=== PATIENT | female | born 1955 | race Caucasian/White ===

== ENCOUNTER 2016-09-09 20:38 | Emergency (ER) | payer OTHER ==
[~2016-09-09] VITALS: Ht 165.1 cm; Wt 77.1 kg
[2016-09-09] MEDS ORDERED: fentaNYL INJECTION 100 MCG/2 ML AMP ONE (20:53)
[2016-09-09] MEDS ORDERED: ONDANSETRON 4 MG/2 ML (SDV) Z0FRAN ONE (20:53)
[2016-09-09 20:59] LABS: BASOPHILS # (AUTO) 0.1 10^3/uL (0.0-0.1); BASOPHILS % (AUTO) 1 % (0-10); EOSINOPHILS # (AUTO) 0.2 10^3/uL (0.0-0.3); EOSINOPHILS % (AUTO) 2 % (0-10); LYMPHOCYTES # (AUTO) 2.3 X 10^3 (1.0-4.0); LYMPHOCYTES % (AUTO) 27 % (12-44); MEAN CORPUSCULAR HEMOGLOBIN 30 PG (25-34); MEAN CORPUSCULAR HGB CONC 35 G/DL (32-36); MEAN CORPUSCULAR VOLUME 87 FL (80-99); MEAN PLATELET VOLUME 9.7 FL (7.4-10.4); MONOCYTES # (AUTO) 0.6 X 10^3 (0.0-1.0); MONOCYTES % (AUTO) 7 % (0-12); NEUTROPHILS # (AUTO) 5.6 X 10^3 (1.8-7.8); NEUTROPHILS % (AUTO) 64 % (42-75); PLATELET COUNT 243 10^3/uL (130-400); RED BLOOD COUNT 4.65 10^6/uL (4.35-5.85); RED CELL DISTRIBUTION WIDTH 12.5 % (10.0-14.5); WHITE BLOOD COUNT 8.7 10^3/uL (4.3-11.0)
[2016-09-09] MEDS ORDERED: ONDANSETRON 4 MG/2 ML (SDV) Z0FRAN IVP ONE (21:00)
[2016-09-09] MEDS ORDERED: fentaNYL INJECTION 100 MCG/2 ML AMP IVP ONE (21:00)
--- NOTE | 2016-09-09 21:00 | ED Trauma-Burn/Chemical Inh ---
HPI-Trauma Burn/Chemical Inh General Chief Complaint: Abdominal/GI Problems Stated Complaint: RT SIDE ABD PAIN,VOMITING Source: patient Exam Limitations: no limitations History of Present Illness Time seen by provider: 20:58 Initial Comments To ER with sudden onset right sided mid abdominal pain. This is associated with vomiting. This began at 730 tonight which was 1 hour after after she ate a grilled cheese sandwich at 630 p.m. Pain started first then vomiting. She's never had this pain before. She still has all of her organs. She states that for the past few weeks she's had some pain to the right side of her back in the thoracic region without modifying factors that she can recall but this is been mild and very tolerable. No fevers or chills. Primary care is Dr. Marcos in [place]. Her only medication is Advair for a history of asthma. Occurred: this evening Associated Symptoms (Fall): Nausea/Vomiting Allergies and Home Medications Allergies Coded Allergies: No Known Drug Allergies (Unverified , 09/09/16) Home Medications Fluticasone/Salmeterol 1 Each Blst.w.dev 1 EACH IH (Reported) Hydrocodone/Acetaminophen 1 Each Tablet #30 1-2 EACH PO Q6H PRN PRN PAIN Prescribed by: SOBIA BOYD on 09/09/162215 Ketorolac Tromethamine 10 Mg Tablet #10 10 MG PO Q6H PRN PRN PAIN Prescribed by: SOBIA BOYD on 09/09/162215 Sulfamethoxazole/Trimethoprim 1 Each Tablet #14 1 EACH PO BID Prescribed by: SOBIA BOYD on 09/09/162215 Tamsulosin HCl 0.4 Mg Cap #14 0.4 MG PO DAILY Prescribed by: SOBIA BOYD on 09/09/162215 Constitutional: see HPINo chills, No fever Eyes: No Symptoms Reported Ears: No Symptoms Reported Nose: No Symptoms Reported Mouth: No Symptoms Reported Throat: No Symptoms to Report Respiratory: no symptoms reported Cardiovascular: No Symptoms Reported Gastrointestinal: abdominal pain nausea vomiting Genitourinary: no symptoms reported Past Gavqviw-Chkevx-Ajpuwl Hx Patient Social History Recent Foreign Travel: No Contact w/Someone Who Travel: No Physical Exam-Burn/Chemical In Physical Exam Vital Signs Vital Sign - Last 12Hours 09/09/16 20:50 Temp 97.4 Pulse 82 Resp 20 B/P 144/75 Pulse Ox 98 O2 Delivery Room Air Capillary Refill : General Appearance: WD/WN no apparent distress Head: No Evidence of InjuryNo Active Bleeding Eyes: Bilateral Eye EOMI, Bilateral Eye Normal Inspection, Bilateral Eye PERRL Ears, Nose, Throat: Hearing Grossly Normal No Evidence of ENT Injury Neck: non-tender full range of motion Cardiovascular: regular rate, rhythm no murmur Respiratory: chest non-tender lungs clear normal breath sounds no respiratory distress no accessory muscle use Gastrointestinal: normal bowel sounds soft rebound tenderness (significant tenderness to palpation of the entire right side of the abdomen both upper and lower quadrants) Extremities: normal range of motion non-tender Neurologic/Psychiatric: alert normal mood/affect oriented x 3 Skin: normal color warm/dry [place] Coma Score Best Eye Response ([place]): (4) Open Spontaneously Best Verbal Response ([place]): (5) Oriented Best Motor Response ([place]): (6) Obeys Commands [place] Total: 15 Progress/Results/Core Measures Results/Orders Lab Results Laboratory Tests Test 09/09/16 20:50 09/09/16 21:05 Range/Units Alanine Aminotransferase (ALT/SGPT) 16 0-55 U/L Albumin 4.3 3.2-4.5 G/DL Alkaline Phosphatase 68 40-136 U/L Anion Gap 12 5-14 MMOL/L Aspartate Amino Transf (AST/SGOT) 18 5-34 U/L BUN/Creatinine Ratio 18 Basophils # (Auto) 0.1 0.0-0.1 10^3/uL Basophils (%) (Auto) 1 0-10 % Blood Urea Nitrogen 18 7-18 MG/DL Calcium Level 9.3 8.5-10.1 MG/DL Carbon Dioxide Level 24 21-32 MMOL/L Chloride Level 107 98-107 MMOL/L Creatinine 0.99 0.60-1.30 MG/DL Eosinophils # (Auto) 0.2 0.0-0.3 10^3/uL Eosinophils (%) (Auto) 2 0-10 % Estimat Glomerular Filtration Rate 57 Glucose Level 114 H 70-105 MG/DL Hematocrit 41 35-52 % Hemoglobin 14.0 11.5-16.0 G/DL Lipase 40 8-78 U/L Lymphocytes # (Auto) 2.3 1.0-4.0 X 10^3 Lymphocytes (%) (Auto) 27 12-44 % Mean Corpuscular Hemoglobin 30 25-34 PG Mean Corpuscular Hemoglobin Concent 35 32-36 G/DL Mean Corpuscular Volume 87 80-99 FL Mean Platelet Volume 9.7 7.4-10.4 FL Monocytes # (Auto) 0.6 0.0-1.0 X 10^3 Monocytes (%) (Auto) 7 0-12 % Neutrophils # (Auto) 5.6 1.8-7.8 X 10^3 Neutrophils (%) (Auto) 64 42-75 % Platelet Count 243 130-400 10^3/uL Potassium Level 3.9 3.6-5.0 MMOL/L Red Blood Count 4.65 4.35-5.85 10^6/uL Red Cell Distribution Width 12.5 10.0-14.5 % Sodium Level 143 135-145 MMOL/L Total Bilirubin 0.6 0.1-1.0 MG/DL Total Protein 6.8 6.4-8.2 G/DL White Blood Count 8.7 4.3-11.0 10^3/uL Urine Bacteria FEW H /HPF Urine Bilirubin NEGATIVE NEGATIVE Urine Casts NONE /LPF Urine Clarity CLEAR Urine Color YELLOW Urine Crystals NONE /LPF Urine Culture Indicated YES Urine Glucose (UA) NEGATIVE NEGATIVE Urine Ketones NEGATIVE NEGATIVE Urine Leukocyte Esterase 3+ H NEGATIVE Urine Mucus LARGE H /LPF Urine Nitrite NEGATIVE NEGATIVE Urine Protein 2+ H NEGATIVE Urine RBC TNTC H /HPF Urine RBC (Auto) 5+ H NEGATIVE Urine Specific [place] 1.025 H 1.016-1.022 Urine Squamous Epithelial Cells 5-10 /HPF Urine Urobilinogen NORMAL NORMAL MG/DL Urine WBC 5-10 H /HPF Urine pH 6 5-9 My Orders Orders-SOBIA BOYD OFFICE MAIL CLERK Cbc With Automated Diff (09/09/16 20:53) Comprehensive Metabolic Panel (09/09/16 20:53) Lipase (09/09/16 20:53) Ua Culture If Indicated (09/09/16 20:53) Saline Lock/Iv-Start (09/09/16 20:53) Ct Abd/Pelv W (Appendicitis) (09/09/16 20:53) Fentanyl Injection (Sublimaze Injection (09/09/16 21:00) Ondansetron Injection (Zofran Injectio (09/09/16 21:00) Diphenhydramine Injection (Benadryl Inje (09/09/16 21:36) Methylprednisolone Sod Succ (Solu-Medrol (09/09/16 21:36) Famotidine Injection (Pepcid Injection) (09/09/16 21:36) Urine Culture (09/09/16 21:05) Ketorolac Injection (Toradol Injection) (09/09/16 22:00) Alfuzosin Tablet (Uroxatral Tablet) (09/09/16 22:00) Ceftriaxone Injection (Rocephin Injectio (09/09/16 22:00) Abdomen/Kub 1view (09/09/16 22:18) Medications Given in ED Current Medications Medications Dose Ordered Sig/[place] Route Start Time Stop Time Status Last Admin Dose Admin Ceftriaxone Sodium/Sodium Chloride 50 ml @ 100 mls/hr ONCE ONCE IV 09/09/16 22:00 09/09/16 22:29 DC 09/09/16 22:17 100 MLS/HR Fentanyl Citrate 50 mcg PRN ONCE IVP 09/09/16 21:00 09/09/16 21:01 DC 09/09/16 21:05 50 MCG Iohexol 100 ml ONCE ONCE IV 09/09/16 21:30 09/09/16 22:46 DC 09/09/16 21:26 100 ML Ketorolac Tromethamine 30 mg 30 mg ONCE ONCE IVP 09/09/16 22:00 09/09/16 22:01 DC 09/09/16 22:17 30 MG Ondansetron HCl 4 mg ONCE ONCE IVP 09/09/16 21:00 09/09/16 21:01 DC 09/09/16 21:05 4 MG Sodium Chloride 100 ml ONCE ONCE IV 09/09/16 21:30 09/09/16 22:46 DC 09/09/16 21:26 80 ML Vital Signs/I&O Vital Sign - Last 12Hours 09/09/16 09/09/16 20:50 22:46 Temp 97.4 Pulse 82 96 Resp 20 14 B/P 144/75 Pulse Ox 98 96 O2 Delivery Room Air Departure Communication Progress Notes [id number]-patient did have an allergic reaction after her administration of IV contrast. This manifested as hives, erythema and intense diffuse itching. She was given Benadryl 50 mg IV, Solu-Medrol 125 mg IV, Pepcid 1 mg IV. At this time she is pain-free after 1 dose of fentanyl. Toradol will be given for additional pain control as we plan to discharge her. Impression Impression: Primary Impression: Calculus of proximal right ureter Disposition: 01 HOME, SELF-CARE Condition: Improved Decision to Admit Reason: Admit from ER (General) Decision to Admit/Date: Sep 09, 2016 Time/Decision to Admit Time: 23:09 Departure-Patient Inst. Decision time for Depature: 22:14 Referrals: NO,LOCAL PHYSICIAN (PCP) Primary Care Physician RUBEN MORRIS MD Patient Instructions: Kidney Stones in Adults Add. Discharge Instructions: 1. Drink plenty of fluids 2. Medication as directed 3. Return to the emergency room for any intolerable pain or other concerns 4.call Dr. Morris's office tomorrow morning to make an appointment to be seen as soon as he can schedule you. All discharge instructions reviewed with patient and/or family. Voiced understanding. Scripts Sulfamethoxazole/Trimethoprim (Bactrim Ds Tablet)1 Each Tablet1 Each PO BID #14 TAB Prov:SOBIA BOYD APRN 09/09/16 Ketorolac Tromethamine 10 Mg [id number] Mg PO Q6H PRN PAIN #10 TAB Prov:SOBIA BOYD APRN 09/09/16 Hydrocodone/Acetaminophen ([place] 5-325 Tablet)1 Each Tablet1-2 Each PO Q6H PRN PAIN #30 TAB Prov:SOBIA BOYD APRN 09/09/16 Tamsulosin HCl (Flomax)0.4 Mg Cap0.4 Mg PO DAILY #14 CAP Prov:SOBIA BOYD APRN 09/09/16 Work/School Note: Work Release Form Date Seen in the Emergency Department: Sep 09, 2016 Return to Work: Sep 11, 2016 Restrictions: No Restrictions Copy Copies To 1: RUBEN MORRIS MD, PETER J APRN Sep 09, 2016 21:00
[2016-09-09] MEDS ORDERED: FLUT1DIS28 IH (21:13)
[2016-09-09 21:18] LABS: BILIRUBIN,URINE NEGATIVE (NEGATIVE); KETONES,URINE NEGATIVE (NEGATIVE); LEUKOCYTE ESTERASE ,URINE 3+ (NEGATIVE); NITRITE,URINE NEGATIVE (NEGATIVE); PH,URINE 6 (5-9); PROTEIN,URINE 2+ (NEGATIVE); UROBILINOGEN,URINE NORMAL (NORMAL)
[2016-09-09 21:22] LABS: ALBUMIN 4.3 G/DL (3.2-4.5); BILIRUBIN,TOTAL 0.6 MG/DL (0.1-1.0); CALCIUM 9.3 MG/DL (8.5-10.1); CREATININE SERUM 0.99 MG/DL (0.60-1.30); POTASSIUM 3.9 MMOL/L (3.6-5.0); TOTAL PROTEIN 6.8 G/DL (6.4-8.2)
[2016-09-09] MEDS ORDERED: NS 100 ML (IVPB) BAG IV ONE (21:30)
[2016-09-09] MEDS ORDERED: IOHEXOL 350 MG/ML 100 ML (OMNIPAQUE 350) VIAL IV ONE (21:30)
[2016-09-09] MEDS ORDERED: diphenhydrAMINE 50 MG/ML INJ (BENADRYL) ONE (21:36)
[2016-09-09] MEDS ORDERED: methylPREDNISolone 125 MG (Solu-MEDROL) VIAL ONE (21:36)
[2016-09-09] MEDS ORDERED: FAMOTIDINE 20MG/2ML IV (PEPCID) ONE (21:36)
[2016-09-09] MEDS ORDERED: FAMOTIDINE 20MG/2ML IV (PEPCID) IV STA (21:37)
[2016-09-09] MEDS ORDERED: diphenhydrAMINE 50 MG/ML INJ (BENADRYL) IV STA (21:37)
[2016-09-09] MEDS ORDERED: methylPREDNISolone 125 MG (Solu-MEDROL) VIAL IV STA (21:37)
[2016-09-09] MEDS ORDERED: cefTRIAXone INJECTION 1,000 MG in NS (IVPB) 50 ML IV ONE (22:00)
[2016-09-09] MEDS ORDERED: KETOROLAC 30 MG/ML VIAL IVP ONE (22:00)
[2016-09-09] MEDS ORDERED: ALFUZOSIN HCL 10 MG TAB (UROXATRAL) PO SCH (22:00)
--- NOTE | 2016-09-09 22:02 | Diagnostic Imaging Report ---
PROCEDURE: CT abdomen and pelvis with contrast, rule out appendicitis. TECHNIQUE: Multiple contiguous axial images were obtained through the abdomen and pelvis after the administration of intravenous contrast. Indication: Right-sided abdominal pain. Comparison: None. Discussion: The visualized lung bases are unremarkable. Normal heart size. No pleural or pericardial fluid. The liver, gallbladder, pancreas, spleen, stomach, and adrenal glands are unremarkable. There is moderate right hydronephrosis secondary to a 5 mm stone within the proximal right ureter. No hydronephrosis or stone identified on the left. The appendix is normal. Mild diverticulosis with no secondary evidence for diverticulitis. No abnormal small bowel loops identified. The uterus and urinary bladder are unremarkable. There is no ascites or pathologically enlarged lymph nodes identified. No acute osseous abnormality identified. Impression: 1. Moderate right hydronephrosis secondary to a 5 mm stone within the proximal right ureter. Dictated by: Dictated on workstation # [id number]
[2016-09-09] MEDS ORDERED: KETO10TA PO (22:16)
[2016-09-09] MEDS ORDERED: HYDR-757 PO (22:16)
[2016-09-09] MEDS ORDERED: SULF1TAB35 PO (22:16)
[2016-09-09] MEDS ORDERED: TAMS0.4C98 PO (22:16)
[2016-09-09 22:46] VITALS: BP 125/56
--- NOTE | 2016-09-10 08:09 | Diagnostic Imaging Report ---
INDICATION: Right-sided flank pain. KUB obtained at 10:40 p.m. FINDINGS: The abdominal bowel gas pattern is unremarkable. There is residual contrast in the kidneys on both sides as well as in the bladder and ureter. There is hydronephrosis of the right kidney down to the level of a stone at the approximate level of L3-L4. The stone is partially obscured by contrast but was well seen on the CT study done earlier today. Some contrast does pass beyond the stone to the distal ureter on the right side. The left ureter is unremarkable in caliber and appearance. IMPRESSION: Partially obstructing stone in the right upper ureter with hydronephrosis. Some contrast does pass beyond the stone as the distal ureter is visualized. The bowel gas pattern is unremarkable. Dictated by: Dictated on workstation # [id number]
== END 2016-09-09 22:46 | disposition home or self-care (01) ==
LOC: ER 20:41
DX: N13.2 Hydronephrosis with renal and ureteral calculous obstruction (principal); R11.2 Nausea with vomiting, unspecified
CPT/HCPCS: 36415; 74000; 74177; 80053; 81000; 83690; 85025; 87088; 96365; 96375

== ENCOUNTER → 2016-09-23 | Outpatient (CLI) | payer OTHER ==
[~2016-09-23] MED LIST: FLUT1DIS28 IH; HYDR-3812 PO; HYDR-757 PO; KETO10TA PO; NITR-65 PO; PHEN-639 PO; SULF1TAB35 PO; TAMS0.4C98 PO
--- NOTE | 2016-09-23 20:43 | Diagnostic Imaging Report ---
KUB. INDICATION: Follow-up right ureteric stone. FINDINGS: There are multiple pelvic calcifications likely related to phleboliths. The previously seen level of obstruction based on contrast within the right ureter from a preceding CT scan is not definitely visualized on the current exam. This could be related to interval passage of the right ureteric stone. Correlate clinically. Moderate amount of fecal material is seen in the colon. IMPRESSION: Multiple calcifications in the pelvis are likely phleboliths. No definitive urinary tract stone is identified. Dictated by: Dictated on workstation # [id number]
== END ==
LOC: RAD 14:48
PROVIDERS: ATTEND Urology
DX: N20.1 Calculus of ureter (principal)
CPT/HCPCS: 74000

== ENCOUNTER 2016-09-24 09:52 | Day surgery (SDC) | payer OTHER ==
[~2016-09-24] VITALS: Ht 165.1 cm; Wt 76.2 kg
[~2016-09-24 09:52] MED LIST changes: -HYDR-3812 PO; -NITR-65 PO; -PHEN-639 PO
[2016-09-24] MEDS ORDERED: NS (IVPB) 50 ML ONE (10:04)
[2016-09-24] MEDS ORDERED: cefTRIAXone 1 GM (ROCEPHIN) VIAL ONE (10:04)
--- NOTE | 2016-09-24 10:21 | Diagnostic Imaging Report ---
INDICATION: Right-sided flank pain. TECHNIQUE: A KUB was obtained at 1020 hours. FINDINGS: The abdominal bowel gas pattern is unremarkable. There is no sign of obstruction or ileus. There are multiple calcifications over the pelvis which may be phleboliths or stones. IMPRESSION: Unremarkable bowel gas pattern. There are multiple pelvic calcifications which may be phleboliths or small stones. No significant change from yesterday. Dictated by: Dictated on workstation # [id number]
[2016-09-24] MEDS ORDERED: FAMOTIDINE 20MG/2ML IV (PEPCID) IV ONE (10:45)
[2016-09-24] MEDS ORDERED: cefTRIAXone 1 GM/NS 50 ML IVPB IV ONE ×2 (10:45)
[2016-09-24] MEDS: LACTATED RINGERS 1,000 ML IV PRN ×2 (10:47→14:50)
--- NOTE | 2016-09-24 11:01 | Progress Note-Pre Operative ---
Pre-Operative Progress Note H&P Reviewed The H&P was reviewed, patient examined and no changes noted. Date H&P Reviewed: Sep 24, 2016 Time H&P Reviewed: 11:01 Pre-Operative Diagnosis: RT DISTAL URETERAL STONE RUBEN MORRIS MD Sep 24, 2016 11:01 am
[2016-09-24 11:23] VITALS: BP 121/61
--- NOTE | 2016-09-24 12:05 | Progress Note-Post Operative ---
Post-Operative Progess Note Surgeon (s)/Solar Development Engineer (s) Surgeon RUBEN MORRIS MD Solar Development Engineer: N/A Pre-Operative Diagnosis RT DISTAL URETERAL STONE Post-Operative Diagnosis SAME Post-Op Procedure Note Date of Procedure: Sep 24, 2016 Name of Procedure Performed: CYSTO, RT URETEROSCOPY WITH ATTEMPTED LITHOTRIPSY, AND RT ESWL Description of the Procedure: ABOVE Findings of the Procedure RT DISTAL URETERAL STONE Anesthesia Type GENERAL Estimated blood loss (mL): N/A Specimen(s) collected/removed N/A RUBEN MORRIS MD Sep 24, 2016 12:05 pm
--- NOTE | 2016-09-24 12:07 | Discharge Inst-Urology ---
Discharge Inst-Urology Discharge Medications New, Converted, or Re-newed RX: RX on Chart Patient Instructions/Follow Up Plan Please make appointment to been seen in office in 2 weeks. KUB PRIOR TO IT KUB ON WAY HOME POST ESWL INSTRUCTIONS Increase oral fluids for 48 hours and then as needed. Diet and Activity as tolerated. If questions or concerns contact your physician Or seek help at emergency department. RUBEN MORRIS MD Sep 24, 2016 12:06 pm
[2016-09-24] MEDS ORDERED: proPOfol 200 MG/20 ML (DIPRIVAN) VIAL IV ONE (12:47)
[2016-09-24] MEDS ORDERED: fentaNYL INJECTION 100 MCG/2 ML AMP ONE (12:47)
[2016-09-24] MEDS ORDERED: MIDAZOLAM 2 MG/2 ML (VERSED) VIAL ONE (12:47)
[2016-09-24] MEDS ORDERED: ROCURONIUM 50 MG/5 ML (ZEMURON) VIAL IV ONE (12:47)
[2016-09-24] MEDS ORDERED: SEVOFLURANE (ULTANE) 15 ML INHAL SOLN ONE ×3 (13:41→14:30)
[2016-09-24] MEDS ORDERED: LACTATED RINGERS 1,000 ML IV ONE ×2 (13:41→14:43)
[2016-09-24] MEDS ORDERED: ONDANSETRON 4 MG/2 ML (SDV) Z0FRAN ONE (13:41)
[2016-09-24 13:45] VITALS: BP 121/61
[2016-09-24] MEDS ORDERED: KETOROLAC 30 MG/ML VIAL ONE (13:51)
[2016-09-24] MEDS ORDERED: FUROSEMIDE 40 MG/4 ML INJ (LASIX) ONE (13:51)
[2016-09-24] MEDS ORDERED: NEOSTIGMINE (BLOXIVERZ ) 1 MG/1ML 10 ML VIAL ONE (14:07)
[2016-09-24] MEDS ORDERED: GLYCOPYRROLATE 0.2 MG/ML (ROBINUL) 2 ML VIAL ONE (14:07)
[2016-09-24] MEDS ORDERED: morphine INJ 10 MG/ML 1ML (SYR OR VIAL) ONE (14:42)
[2016-09-24 15:20] VITALS: BP 128/62
[2016-09-24] MEDS ORDERED: HYDR-3812 PO (15:44)
[2016-09-24] MEDS ORDERED: PHEN-639 PO (15:44)
[2016-09-24] MEDS ORDERED: NITR-65 PO (15:44)
[2016-09-24] MEDS ORDERED: TAMS0.4C98 PO (15:44)
[2016-09-24 15:50] VITALS: BP 127/66
[2016-09-24] MEDS ORDERED: ONDANSETRON 4 MG/2 ML (SDV) Z0FRAN IVP ONE (16:00)
--- NOTE | 2016-09-24 16:14 | Diagnostic Imaging Report ---
KUB. INDICATION: Post lithotripsy. COMPARISON: 09/24/2016. FINDINGS: Again seen multiple calcifications in the pelvis which could be phleboliths. Beqzr-dt-qxnkrayw amounts of fecal material seen. IMPRESSION: Multiple pelvic calcifications likely phleboliths with no definitive stone. Dictated by: Dictated on workstation # [id number]
[2016-09-24 16:20] VITALS: BP 114/69
--- NOTE | 2016-09-25 13:27 | OPERATIVE REPORT ---
PROCEDURE PHYSICIAN: RUBEN MORRIS DATE OF PROCEDURE: 09/24/2016 PREOPERATIVE DIAGNOSIS: Right distal ureteral stone. POSTOPERATIVE DIAGNOSIS: Right distal ureteral stone. OPERATION PERFORMED: 1. Cystoscopy. 2. Right ureteroscopy with attempted lithotripsy. 3. Right ESWL. SURGEON: Lori. ANESTHESIA: General. COMPLICATIONS: None. PROCEDURE: Under satisfactory general anesthesia, the patient in lithotomy position on the cystoscopy table, the genitalia were prepped and draped in usual sterile fashion. 23-Mac[place] cystoscope introduced in the bladder. I went ahead and dilated the right ureteral orifice, intramural portion to accommodate a 6.9-[place] semirigid ureteroscope. I could not get to the level of the stone because of a curve in the ureter and I could not manipulate the semirigid ureteroscope so I terminated the procedure, removed the ureteroscope, inserted the cystoscope to empty the bladder and then moved the patient to the ESWL table supine. The stone was localized and shocks were delivered KV of 6. A total of 2000 shocks. The stone looked fragmented. The patient received 30 mg of Toradol and 40 mg of Lasix IV. She tolerated the procedure and anesthesia well and was sent to recovery room in stable condition. Job ID: [id number] Dictated Date: 09/24/2016 14:18:32 Template Clerk Date: 09/25/2016 13:23:16 / linda
== END 2016-09-24 16:45 | disposition home or self-care (01) ==
LOC: DELPENDDIS → SDC 09:52
PROVIDERS: ATTEND Urology
DX: N20.1 Calculus of ureter (principal); Z11.2 Encounter for screening for other bacterial diseases
CPT/HCPCS: 74000; 87081

== ENCOUNTER → 2016-10-07 | Outpatient (CLI) | payer OTHER ==
[~2016-10-07] MED LIST changes: +HYDR-3812 PO; +NITR-65 PO; +PHEN-639 PO
--- NOTE | 2016-10-07 17:29 | Diagnostic Imaging Report ---
INDICATION: Reported history of renal calculus. COMPARISON: CT dated 09/09/2016 FINDINGS: Single frontal radiographic view of the abdomen was obtained. Again identified are multiple extraosseous calcifications within the bilateral pelvis suggestive of phleboliths. No definite ureteral calculus is identified. No other unexpected foreign bodies are seen. Small bowel loops are nondistended. There is no large collection of free intraperitoneal air. Bony structures show no acute abnormalities. IMPRESSION: 1. Multiple extraosseous calcifications within the pelvis. Suspect phleboliths. Dictated by: Dictated on workstation # [id number]
== END ==
LOC: RAD 15:30
PROVIDERS: ATTEND Urology
DX: R93.5 Abnormal findings on diagnostic imaging of other abdominal regions, including retroperitoneum (principal)
CPT/HCPCS: 74000

== ENCOUNTER 2020-04-18 05:46 | Outpatient (RCR) | payer OTHER ==
[~2020-04-18] VITALS: Ht 165 cm; Wt 79.5 kg
[~2020-04-18 05:46] MED LIST changes: +ACHD5005 PO; -HYDR-3812 PO; +HYDR-4226 PO; -HYDR-757 PO; -TAMS0.4C98 PO; +TMSL.4C PO
[2020-04-18] MEDS ORDERED: NAPR-915 PO (12:25)
== END 2020-07-17 | disposition home or self-care (01) ==
LOC: PREOP 05:46
PROVIDERS: ATTEND Surgery
DX: Z01.818 Encounter for other preprocedural examination (principal)

== ENCOUNTER → 2021-07-29 | Outpatient (RCR) | payer MEDICARE, OTHER ==
[~2021-07-29] VITALS: Ht 165.1 cm; Wt 80.3 kg
[~2021-07-29] MED LIST changes: +NAPR-915 PO; -SULF1TAB35 PO; +SULF1TAB38 PO
== END | disposition home or self-care (01) ==
LOC: PREOP 07-24 05:32
PROVIDERS: ATTEND Surgery
DX: Z01.818 Encounter for other preprocedural examination (principal)

== ENCOUNTER → 2021-07-29 | Outpatient (CLI) | payer MEDICARE, OTHER | LOC: LABNPT 06:15 | PROVIDERS: ATTEND Surgery | DX: Z20.822 Contact with and (suspected) exposure to COVID-19 (principal) | CPT/HCPCS: 87635 ==

== ENCOUNTER → 2021-08-05 | Outpatient (CLI) | payer OTHER ==
[~2021-08-05] MED LIST changes: +PANT40TA2 PO
== END ==
LOC: LABNPT 06:15
PROVIDERS: ATTEND Nurse Practitioner
DX: Z20.822 Contact with and (suspected) exposure to COVID-19 (principal)
CPT/HCPCS: 87635

== ENCOUNTER 2021-08-07 09:01 | Day surgery (SDC) | payer MEDICARE, OTHER ==
[~2021-08-07] VITALS: Ht 165 cm; Wt 80.3 kg
[~2021-08-07 09:01] MED LIST changes: -PANT40TA2 PO
[2021-08-07] MEDS ORDERED: LACTATED RINGERS 1,000 ML IV STA (09:12)
[2021-08-07] MEDS ORDERED: LIDOCAINE JELLY 2% 6 ML SYRINGE MM PRN (09:15)
[2021-08-07] MEDS ORDERED: HURRICAINE EXT TUBE (BENZOCAINE) XX PRN (09:15)
[2021-08-07 09:20] VITALS: BP 129/65
[2021-08-07] MEDS ORDERED: PROPOFOL INJECTION 50 ML IV ONE ×2 (10:18→10:46)
[2021-08-07] MEDS ORDERED: MIDAZOLAM 2 MG/2 ML (VERSED) VIAL ONE (10:18)
--- NOTE | 2021-08-07 10:22 | Progress Note-Pre Operative ---
Pre-Operative Progress Note H&P Reviewed The H&P was reviewed, patient examined and no changes noted. Date Seen by Provider: Aug 07, 2021 Time Seen by Provider: : Date H&P Reviewed: Aug 07, 2021 Time H&P Reviewed: : Pre-Operative Diagnosis: GERD, screening colo ALIYA ROSARIO MD Aug 07, 2021 10:22
[2021-08-07] MEDS ORDERED: PANT40TA2 PO (10:24)
--- NOTE | 2021-08-07 10:24 | Discharge Inst-Surgical ---
D/C Lap Instructions-KIDO New, Converted, or Re-Newed RX: RX on Chart Follow Up Activity as tolerated High Fiber Diet 25g or more per day Avoid Alcohol, Caffeine, Spicy [place] and Acid foods. Drink 64 fluid oz or more of fluids per day. Symptoms to Report: Fever over 101 degree F, Nausea/Vomiting If any problems/questions: Contact your physician or go to Emergency Room ALIYA ROSARIO MD Aug 07, 2021 10:24
[2021-08-07] MEDS ORDERED: ONDANSETRON 4 MG/2 ML (SDV) Z0FRAN IVP PRN (10:30)
[2021-08-07] MEDS ORDERED: ONDANSETRON 4 MG (ZOFRAN) ORAL DISSOLVE TAB PO PRN (10:30)
[2021-08-07 11:05] VITALS: BP 100/56
[2021-08-07 11:10] VITALS: BP 100/56
[2021-08-07 11:15] VITALS: BP 105/56
[2021-08-07 11:40] VITALS: BP 108/61
--- NOTE | 2021-08-07 11:50 | Progress Note-Post Operative ---
Post-Operative Progess Note Surgeon (s)/Mortgage Coordinator (s) Surgeon ALIYA ROSARIO MD Mortgage Coordinator: none Pre-Operative Diagnosis GERD, screening colo with FH Post-Operative Diagnosis reflux esophagitis(grade c) with distal esophageal stricture, small HH(2.5cm), moderate gastritis. moderate sigmoid diverticulosis. Procedure & Operative Findings Date of Procedure 08/07/21 Procedure Performed/Findings EGD with bx and balloon dilatation. colonoscopy. Anesthesia Type mac Estimated Blood Loss Estimated blood loss (mL): minimal Specimens/Packing Specimens Removed ge jxn, antrum ALIYA ROSARIO MD Aug 07, 2021 11:50
[2021-08-07 11:55] VITALS: BP 108/61
--- NOTE | 2021-08-07 15:06 | Anesthesia-General Post-Op ---
MAC Patient Condition Mental Status/LOC: Same as Preop Cardiovascular: Satisfactory Nausea/Vomiting: Absent Respiratory: Satisfactory Pain: Controlled Complications: Absent Post Op Complications Complications None Follow Up Care/Instructions Patient Instructions None needed. Anesthesiology Discharge Order Discharge Order Patient is doing well, no complaints, stable vital signs, no apparent adverse anesthesia problems. No complications reported per nursing. RODOLFO CHILDS CRNA Aug 07, 2021 15:06
--- NOTE | 2021-08-07 16:13 | OPERATIVE REPORT ---
DATE OF SERVICE: 08/07/2021 ATTENDING PRIMARY CARE PHYSICIAN: Alexis Copeland. PREOPERATIVE DIAGNOSES: Gastroesophageal reflux disease, screening colonoscopy. POSTOPERATIVE DIAGNOSES: Reflux esophagitis, [place] grade C with a distal esophageal stricture, small hiatal hernia 2.5 cm in size, moderate gastritis. No distal obstructions, moderate sigmoid diverticulosis. PROCEDURE: EGD with biopsy and balloon dilatation. Colonoscopy. SURGEON: Aliya Rosario MD ANESTHESIA: Monitored anesthesia care. ESTIMATED BLOOD LOSS: Minimal. FINDINGS: Same as postoperative diagnoses. DISPOSITION: The patient tolerated the procedure well. INDICATIONS: The patient is a 65-year-old female in need of a screening colonoscopy. Her last one was approximately 15 years ago and she believes this to be normal. The patient does have a family history of colon cancer with her sister having the disease. She also reports that she has had frequent episodes of what she believes is reflux as well as nausea and has been taking rmza-vst-yexcjlf antacids without any relief. DESCRIPTION OF PROCEDURE: The patient was brought to the endoscopy suite, laid in left lateral decubitus position. After adequate IV pain and sedative medications and monitored anesthesia care, the mouthpiece was applied. The endoscope was placed in the mouth, visualizing the pharynx and hypopharyngeal region. Vocal cords, epiglottis and vallecula identified and appeared to be normal. The endoscope was gently intubated esophageal opening and esophagus insufflated. The endoscope was then advanced through the first, second and third portions of esophagus at the level of the GE junction at [place], grade C reflux esophagitis identified as well as a mild to moderate distal esophageal stricture. A biopsy was taken of the region with forceps with visualization of good hemostasis. The endoscope was then advanced in the stomach and endoscope retroflexed, visualizing a small hiatal hernia approximately 2.5 cm in size. There was a moderate severity gastritis. No ulcerations, polyps, or any neoplasms. A biopsy was taken of the antrum to rule out H. pylori with visualization of good hemostasis. Endoscope was then advanced to the pylorus and the first and second portion of the duodenum, which appeared normal with no distal obstructions. The balloon was then placed in the stomach and pulled back to the area of stricture. We then proceeded with a stepwise graded dilatation of the lower esophageal stricture from 2, 4, then eventually 5 atmospheres of pressure with moderate resistance or approximately 19.5 mm in luminal diameter and left this in place for approximately 60 seconds. The wound was then desufflated and removed with visualization, good hemostasis as well as no mucosal tears. Endoscope was then slowly withdrawn while taking a second look and suctioning of residual air with no additional findings. A digital rectal examination was performed. No significant hemorrhoids identified. Normal sphincter tone was felt and there were no palpable masses. The endoscope was then intubated into the anus and rectum gently insufflated. The endoscope was then advanced to the valves of [place] of the rectum with no polyps or any neoplasms identified. Through the sigmoid colon, a moderate sigmoid diverticulosis with no mucosal inflammatory changes to indicate any active diverticulitis. The endoscope was then advanced to the remainder of the descending, transverse and ascending colon to the cecum, which were normal. The endoscope was then slowly withdrawn while taking a second look and suctioning of residual air with no additional findings. The patient tolerated the procedure well. We will recommend the necessary lifestyle and dietary accommodation including small and more frequent meals, avoidance of eating at night as well as head elevation while lying supine. She also needs to avoid caffeinated beverages, spicy, greasy and acidic foods. We will also start her on Protonix 40 mg daily. If she does have recurrent dysphagia, we will have her return in approximately 6 weeks for continued graded dilatation until we reach approximately 20 mm in luminal diameter. We will also recommend a high-fiber diet with a fiber supplement, which should equal or exceed 25 grams daily as well as significant amounts of water to promote soft stools on a daily basis. Due to her first-degree family history of colon cancer, we will recommend a followup colonoscopy in approximately 5 years. Job ID: [id number] DocumentID: [id number] Dictated Date: 08/07/2021 11:12:21 Buttonhole Tacker Date: 08/07/2021 16:12:56 Dictated By: ALIYA ROSARIO MD
== END 2021-08-07 11:55 | disposition home or self-care (01) ==
LOC: ENDO 09:01
PROVIDERS: ATTEND Surgery
DX: Z12.11 Encounter for screening for malignant neoplasm of colon (principal); K21.00 Gastro-esophageal reflux disease with esophagitis, without bleeding; K22.2 Esophageal obstruction; K44.9 Diaphragmatic hernia without obstruction or gangrene; K29.70 Gastritis, unspecified, without bleeding; K57.30 Diverticulosis of large intestine without perforation or abscess without bleeding; K31.A19 Gastric intestinal metaplasia without dysplasia, unspecified site; J45.909 Unspecified asthma, uncomplicated; Z79.899 Other long term (current) drug therapy; Z87.442 Personal history of urinary calculi; Z80.3 Family history of malignant neoplasm of breast; Z80.0 Family history of malignant neoplasm of digestive organs; Z80.41 Family history of malignant neoplasm of ovary
CPT/HCPCS: 43239; 43249; G0105